=== PATIENT | female | born 1995 | race African-American/Black ===

== ENCOUNTER 2018-10-17 01:48 | Outpatient (CLI) | payer OTHER ==
[2018-10-17 02:23] LABS: APPEARANCE,URINE CLOUDY; BILIRUBIN,URINE NEGATIVE (NEGATIVE); GLUCOSE, URINE NEGATIVE (NEGATIVE); KETONES,URINE TRACE mg/dL (NEGATIVE); LEUKOCYTE ESTERASE,URINE MODERATE (NEGATIVE); NITRITE,URINE NEGATIVE (NEGATIVE); PROTEIN,URINE 30 mg/dL (NEGATIVE); URINE SPECIFIC GRAVITY 1.028
[2018-10-17 02:24] LABS: COLOR,URINE DARK YELLOW
[2018-10-17 02:38] LABS: URINE AMPHETAMINES SCREEN NEGATIVE; URINE BARBITURATES SCREEN NEGATIVE; URINE BENZODIAZEPINES SCREEN NEGATIVE; URINE COCAINE SCREEN NEGATIVE; URINE MARIJUANA (THC) SCREEN NEGATIVE; URINE METHADONE SCREEN NEGATIVE; URINE PHENCYCLIDINE SCREEN NEGATIVE
[2018-10-17] MEDS ORDERED: RINGERS SOLUTION,LACTATED 1,000 ML IV PRN (03:10)
[2018-10-17] MEDS ORDERED: CEFTRIAXONE INJ 1000 MG VIAL ONE (03:20)
[2018-10-17] MEDS ORDERED: RINGERS SOLUTION,LACTATED 1,000 ML IV ONE (04:00)
[2018-10-17] MEDS ORDERED: CEFTRIAXONE INJ 1000 MG VIAL IV ONE (04:00)
[2018-10-17 05:11] LABS: CHLAM PCR NOT DETECTED (NOT DETECT)
--- NOTE | 2018-10-17 07:05 | Non Stress Test Report ---
Non Stress Test Datetime Report Generated by CPN: 10/17/2018 07:05 DEMOGRAPHIC EGA NST: 37.3 INDICATION Indication for Study: Other Indication for Study (NST) Other: labor check MONITORING Monitor Explained: Monitor Explained; Test Explained; Patient Verbalized Understanding Time on Monitor: 10/17/2018 02:06 Time off Monitor: 10/17/2018 06:35 NST Duration: 269 NST INTERVENTIONS NST Interventions: None Physician Notified NST: Dr Younger BABY A: [id number] BABY A Movement : Present Contraction Frequency : none Accelerations : 15X15 Decelerations : None Variability : Moderate 6-25bpm NST Review: Does Not Meet Criteria for Reactive NST NST Review and Verified By : B. Ring RN NST Results: Reactive NST REPORT Report Trigger: Send Report
== END 2018-10-17 06:55 | disposition home or self-care (01) ==
LOC: LC 01:48
PROVIDERS: ATTEND Obstetrics & Gynecology
PROC: 4A1HXCZ Monitoring of Products of Conception, Cardiac Rate, External Approach (ICD-10-PCS; principal; 2018-10-17)
DX: O47.1 False labor at or after 37 completed weeks of gestation (principal); Z3A.37 37 weeks gestation of pregnancy
CPT/HCPCS: 59025; 81005; 87081; 80307; 87491; 87591; J0696